=== PATIENT | male | born 1955 | race Caucasian/White ===

== ENCOUNTER 2018-12-17 20:22 | Inpatient (IN) ==
--- NOTE | 2018-12-17 20:35 | Emergency Department Note ---
Disposition Clinical Impression: CHADD (acute kidney injury) Cellulitis Qualifiers: Site of cellulitis: extremity Site of cellulitis of extremity: lower extremity Laterality: left Qualified Code(s): L03.116 - Cellulitis of left lower limb Chest pain Qualifiers: Chest pain type: unspecified Qualified Code(s): R07.9 - Chest pain, unspecified Disposition: Home, Self-Care Condition: Fair Time of Disposition: 22:31 General Adult HPI - General Chief complaint: ED Extremity Problem,Nontraumatic Stated complaint: Left Leg Pain N/V Time Seen by Provider: 12/17/18 20:34 Source: patient Mode of arrival: ambulatory Limitations: no limitations Nursing Notes Reviewed: Yes Vital Signs Reviewed: Yes - History of Present Illness HPI Narrative: Patient is a 63-year-old male who is presenting with left leg swelling and pain. Patient was seen up rectally 3-4 weeks ago by his primary care provider and placed on 10 days of oral Keflex, when this did not resolve or changes symptoms he was seen up rectally one week ago for similar symptoms and was placed on 5 days Keflex. He states that his symptoms have progressively worsened with increased redness and pain. He states initially there was a small scab in the area which was like a bug bite, he continued to pick this area which seemed ir ritated. He denies any recent fevers or chills. Patient also states that today he has been having right-sided chest pain, he describes as a sharp sharp in nature without exertion changes. He denies any associated shortness of breath. He denies any radiation of symptoms. He also has had some nausea with vomiting, no hemoptysis, hematochezia or hematemesis. He denies any abdominal pain. Pain Scale: 7 - Related Data Home Medications Medication Instructions Recorded Confirmed Atorvastatin [Lipitor] 20 mg PO HS 12/18/18 12/18/18 Cephalexin [Keflex] 500 mg PO TID 12/18/18 12/18/18 Cyclobenzaprine [Flexeril] 10 mg PO DAILY PRN 12/18/18 12/18/18 Gabapentin [Neurontin] 300 mg PO DAILY 12/18/18 12/18/18 Lisinopril [Zestril] 20 mg PO DAILY 12/18/18 12/18/18 Naproxen [Naprosyn] 500 mg PO BID 12/18/18 12/18/18 Sertraline [Zoloft] 100 mg PO DAILY 12/18/18 12/18/18 hydroCHLOROthiazide 25 mg PO DAILY 12/18/18 12/18/18 [Hydrochlorothiazide] Allergies Allergy/AdvReac Type Severity Reaction Status Date / Time No Known Allergies Allergy Verified 12/17/18 20:26 All systems ED: reviewed and negative except as stated. Review of Systems: As Per HPI Constitutional: Denies: fever, chills ENT ED: Denies: congestion Cardiovascular: Denies: chest pain, palpitations, dyspnea on exertion, syncope Respiratory: Denies: cough, dyspnea, wheezes, sputum production Gastrointestinal: Reports: nausea, vomiting. Denies: abdominal pain, hematemesis Genitourinary: Denies: urgency, dysuria Musculoskeletal: Denies: back pain Integumentary: Reports: lesions Neurological: Denies: headache, weakness, confusion Psychiatric: Denies: anxiety Endocrine: Denies: fatigue Past Medical History - Past Medical History Medical history: Reports: hyperlipidemia, hypertension - Social History Smoking Status: Current every day smoker Smokeless Tobacco Status: No Alcohol use: Reports: occasionally Drug use: Reports: none Physical Exam General: Conversant. No apparent distress. Follow commands. Appears stated age. Neck: No JVD. Trachea midline. Neck supple. Eyes: PERRL. No scleral icterus. HENT: Normocephalic and atraumatic. Moist mucus membranes. Cardiovascular: Regular rate and rhythm. Normal S1 and S2. No murmurs appreciated. Normal capillary refill. Extremities well perfused with 2+ distal pulses bilaterally. No edema. Pulmonary: Normal and equal breath sounds bilaterally, anteriorly and posteriorly. No wheezes, rales, or rhonchi. Not in respiratory distress. Speaks in full sentences. Abdomen: Soft, nondistended, without tenderness. No bruits or masses. No guarding or rebound. Neuro: Alert and oriented x3. No slurred speech. No focal deficits noted. Skin: Patient with a 5 similar right-sided 5 cm erythematous well demarcated lesion to the left lower leg, no posterior involvement, no tenderness to palpation of posterior cord, pulses distally are intact, there is no crepitus, bulla formation, abscess or fluctuance noted. This is warm to touch and tenderness to palpation. No bony deformity is noted. Sensation is intact. Strength is intact. Patient able to ambulate. Musculoskeletal: No bony abnormalities visualized. Moves all extremities. Psych: Normal mood. Pleasant. Makes appropriate eye contact. - General Limitations: no limitations General appearance: alert Course Vital Signs Temperature 97.6 F 12/17/18 20:26 Pulse Rate 81 12/17/18 20:26 Respiratory Rate 16 12/17/18 20:26 Blood Pressure 119/77 12/17/18 20:26 O2 Sat by Pulse Oximetry 94 12/17/18 20:26 Temperature 97.6 F 12/17/18 20:26 Pulse Rate 57 12/17/18 22:19 Respiratory Rate 16 12/17/18 22:19 Blood Pressure 83/47 12/17/18 22:19 O2 Sat by Pulse Oximetry 94 12/17/18 22:19 Oxygen Delivery Oxygen Delivery Room Air Procedures - Intubation Mg Given: 100 Medical Decision Making - MDM Narrative Medical decision making narrative: Patient is a 63-year-old male presenting with left leg swelling and pain. Patient was diagnosed practically 3-4 weeks ago with cellulitis by his primary care provider was placed on Keflex 10 days, however continued to have symptoms and was placed on 5 further days, he just finish this regimen yesterday. He st ates that he has noticed increased swelling and redness to the left leg with pain. This is nontraumatic in nature. He is a smoker no history of diabetes. On examination, patient is alert and oriented 3, on repeat evaluation in the room, patient is normotensive afebrile and is not tachycardic. He does have tenderness as well as erythema with clear demarcation to the left lower leg without posterior involvement. Patient also complained of some chest pain today, troponin and EKG were also performed as well as chest x-ray these were all unremarkable. Patient was started on normal saline, x-ray of the left leg was performed which shows no bony involvement. CBC does show a leukocytosis, ESR and CRP are elevated, patient also has elevated serum creatinine, as patient has no known history in our hospital or ER, do not know if this is acute or chronic nature. Patient was started on vancomycin as well as cefepime per concern for cellulitis. At this point in time, patient will be admitted to the hospital for failed outpatient treatment. Blood cultures and lactate have been ordered. Patient agreeable to admission. - Medical Records Medical records reviewed: Yes I reviewed the patient's medical records. - Lab Data Lab results reviewed: Yes I reviewed the patient's lab results. Result diagrams: 12/22/18 04:43 12/22/18 04:43 Lab Results 12/17/18 12/17/18 12/17/18 Range/Units 21:03 21:03 21:03 WBC 19.3 H (4.3-11.1) K/mcL RBC 4.41 (4.19-5.50) M/mcL Hgb 13.6 (12.9-16.9) g/dL Hct 40.9 (37.5-50.1) % MCV 92.7 (83.0-100.0) fL MCH 30.8 (28.0-33.3) pg MCHC 33.3 (31.6-35.5) g/dL RDW 12.4 (11.5-14.5) % Plt Count 304 (140-400) K/mcL MPV 10.4 (9.4-12.4) fL Immature Gran % 0.6 (0-4) % Seg Neutrophils % 85.6 % Lymphocytes % 6.3 % Monocytes % 6.8 % Eosinophils % 0.4 % Basophils % 0.3 % Neutrophils # 16.5 H (1.6-8.9) K/mcL Lymphocytes # 1.2 (0.6-4.6) K/mcL Monocytes # 1.3 (0.0-1.3) K/mcL Eosinophils # 0.1 (0.0-0.6) K/mcL Basophils # 0.1 (0.0-0.2) K/mcL ESR 55 H (0-10) mm/hr Sodium 133 L (136-145) mEq/L Potassium 4.2 (3.5-5.1) mEq/L Chloride 98 (98-107) mEq/L Carbon Dioxide 24 (23-29) mEq/L BUN 25 H (8-23) mg/dL Creatinine 2.34 H (0.70-1.30) mg/dL Est GFR ( Amer) 34 L (> 60) Est GFR (Non-Af Amer) 28 L (> 60) BUN/Creatinine Ratio 11 (6-26) Glucose 126 H (70-105) mg/dL Calculated Osmolality 282 (280-300) Calcium 9.4 (8.6-10.3) mg/dL Troponin I < 0.03 (< 0.04) ng/mL C-Reactive Protein 75 H (Less than 10) mg/L - Radiology Data Radiology results reviewed: Yes I reviewed the patient's radiology results. Chest X-Ray 12/17/18 21:17 IMPRESSION: No acute abnormality detected. D/ / Ric Durand MD / Ric Durand MD Interpreting Provider: Ric Durand MD Tibia/Fibula X-Ray 12/17/18 21:25 IMPRESSION: No acute fracture. D/ / Luis Whitley MD / Luis Whitley MD Interpreting Provider: Luis Whitley MD - EKG Data EKG #1 EKG attestation: Yes I reviewed and interpreted this EKG. EKG results narrative: EKG obtained at 2105 with ventricular rate of 75, regular rhythm, normal axis, no ST segment elevation, depression or T-wave changes. S.B.A.Jasper - S.B.A.RKrystle Situation: Demographics, MOA Background: Presenting Complaint, Relevant PMH, Meds, & Allergies Assessment: Vital Signs, Course and respsone to treatment, Exam Concerns, Patient/Family Expectation, Pertinant Lab Results, Outstanding Labs Recommendation: Barrier(s) to disposition, Recommendation based on pending studies, treatments, or consults S.B.A.RKrystle Report Given to: Dr. Octaviano Parker Repor Time: 23:16 (accepted) Attestation Statement - Attestation Attestation: I have seen this patient with the resident physician, I have personally evaluated this patient. I had reviewed the chart and document dictation by the resident physician and aM in agreement with the information documented by the resident physician. Please see documentation by the resident physician for complete chart including past medical history, family medical history, review of systems, current history and physical and laboratory and imaging studies. I was present for all procedures, provided direct supervision for all procedures, was present for the entirety of all procedures and provided direct guidance during the procedures. Please see documentation by the resident physic newton for any procedures performed. I have reviewed all interpretations of EKGs, and reviewed all EKGs performed on patient's as well. I have also reviewed reports of imaging as provided by radiology.
[2018-12-17] MEDS ORDERED: 0.9 % Sodium Chloride 500 ML IVC ONE (20:55)
[2018-12-17 21:16] LABS: Basophils # 0.1 K/mcL (0.0-0.2); Basophils % 0.3 %; Eosinophils # 0.1 K/mcL (0.0-0.6); Eosinophils % 0.4 %; Hematocrit 40.9 % (37.5-50.1); Hemoglobin 13.6 g/dL (12.9-16.9); Immature Granulocytes % 0.6 % (0-4); Lymphocytes # 1.2 K/mcL (0.6-4.6); Lymphocytes % 6.3 %; Mean Corpuscular HGB Conc 33.3 g/dL (31.6-35.5); Mean Corpuscular Hemoglobin 30.8 pg (28.0-33.3); Mean Corpuscular Volume 92.7 fL (83.0-100.0); Mean Platelet Volume 10.4 fL (9.4-12.4); Monocytes # 1.3 K/mcL (0.0-1.3); Monocytes % 6.8 %; Neutrophils # 16.5 K/mcL (1.6-8.9); Platelet Count 304 K/mcL (140-400); Red Blood Count 4.41 M/mcL (4.19-5.50); Red Cell Distribution Width 12.4 % (11.5-14.5); Segmented Neutrophils % 85.6 %; White Blood Count 19.3 K/mcL (4.3-11.1)
[2018-12-17 21:37] LABS: BUN/Creatinine Ratio 11 (6-26); Blood Urea Nitrogen 25 mg/dL (8-23); C-Reactive Protein 75 mg/L (Less than 10); Calcium 9.4 mg/dL (8.6-10.3); Carbon Dioxide 24 mEq/L (23-29); Chloride 98 mEq/L (98-107); Glucose 126 mg/dL (70-105); Osmolality,Calculated 282 (280-300); Potassium 4.2 mEq/L (3.5-5.1); Sodium 133 mEq/L (136-145); eGFR For African Americans 34 (> 60); eGFR For Non-African Americans 28 (> 60)
[2018-12-17 21:38] LABS: Troponin I < 0.03 ng/mL (< 0.04)
[2018-12-17] MEDS ORDERED: 0.9 % Sodium Chloride 1,000 ML IVC ONE (21:41)
[2018-12-17] MEDS ORDERED: Vancomycin 1,750 MG in 0.9 % Sodium Chloride 250 ML IVPB SCH (22:00)
--- NOTE | 2018-12-17 22:34 | Emergency Department Note ---
Disposition Clinical Impression: Cellulitis Qualifiers: Site of cellulitis: extremity Site of cellulitis of extremity: lower extremity Laterality: left Qualified Code(s): L03.116 - Cellulitis of left lower limb Disposition: Home, Self-Care Condition: Fair Forms: ED Satisfaction Letter Time of Disposition: 22:35 General Adult HPI - General Chief complaint: ED Extremity Problem,Nontraumatic Stated complaint: Left Leg Pain N/V Time Seen by Provider: 12/17/18 20:34 Source: patient Limitations: no limitations - History of Present Illness Pain Scale: 7 - Related Data Previous Rx's Medication Instructions Recorded Cephalexin [Keflex] 500 mg PO QID #40 capsule 12/12/16 Sulfamethoxazole/Trimeth DS 1 each PO BID #20 tablet 12/12/16 [Bactrim DS] Allergies Allergy/AdvReac Type Severity Reaction Status Date / Time No Known Allergies Allergy Verified 12/17/18 20:26 Past Medical History - Past Medical History Medical history: Reports: hyperlipidemia, hypertension - Social History Smoking Status: Current every day smoker Smokeless Tobacco Status: No Alcohol use: Reports: occasionally Drug use: Reports: none Physical Exam - General Limitations: no limitations General appearance: alert Course Vital Signs Temperature 97.6 F 12/17/18 20:26 Pulse Rate 81 12/17/18 20:26 Respiratory Rate 16 12/17/18 20:26 Blood Pressure 119/77 12/17/18 20:26 O2 Sat by Pulse Oximetry 94 12/17/18 20:26 Temperature 97.6 F 12/17/18 20:26 Pulse Rate 57 12/17/18 22:19 Respiratory Rate 16 12/17/18 22:19 Blood Pressure 83/47 12/17/18 22:19 O2 Sat by Pulse Oximetry 94 12/17/18 22:19 Oxygen Delivery Oxygen Delivery Room Air Medical Decision Making - Lab Data Result diagrams: 12/17/18 21:03 12/17/18 21:03 Lab Results 12/17/18 12/17/18 12/17/18 Range/Units 21:03 21:03 21:03 WBC 19.3 H (4.3-11.1) K/mcL RBC 4.41 (4.19-5.50) M/mcL Hgb 13.6 (12.9-16.9) g/dL Hct 40.9 (37.5-50.1) % MCV 92.7 (83.0-100.0) fL MCH 30.8 (28.0-33.3) pg MCHC 33.3 (31.6-35.5) g/dL RDW 12.4 (11.5-14.5) % Plt Count 304 (140-400) K/mcL MPV 10.4 (9.4-12.4) fL Immature Gran % 0.6 (0-4) % Seg Neutrophils % 85.6 % Lymphocytes % 6.3 % Monocytes % 6.8 % Eosinophils % 0.4 % Basophils % 0.3 % Neutrophils # 16.5 H (1.6-8.9) K/mcL Lymphocytes # 1.2 (0.6-4.6) K/mcL Monocytes # 1.3 (0.0-1.3) K/mcL Eosinophils # 0.1 (0.0-0.6) K/mcL Basophils # 0.1 (0.0-0.2) K/mcL ESR 55 H (0-10) mm/hr Sodium 133 L (136-145) mEq/L Potassium 4.2 (3.5-5.1) mEq/L Chloride 98 (98-107) mEq/L Carbon Dioxide 24 (23-29) mEq/L BUN 25 H (8-23) mg/dL Creatinine 2.34 H (0.70-1.30) mg/dL Est GFR ( Amer) 34 L (> 60) Est GFR (Non-Af Amer) 28 L (> 60) BUN/Creatinine Ratio 11 (6-26) Glucose 126 H (70-105) mg/dL Calculated Osmolality 282 (280-300) Calcium 9.4 (8.6-10.3) mg/dL Troponin I < 0.03 (< 0.04) ng/mL C-Reactive Protein 75 H (Less than 10) mg/L Attestation Statement - Attestation Attestation: I have seen this patient with the resident physician, I have personally evaluated this patient. I had reviewed the chart and document dictation by the resident physician and aM in agreement with the information documented by the resident physician. Please see documentation by the resident physician for complete chart including past medical history, family medical history, review of systems, current history and physical and laboratory and imaging studies. I was present for all procedures, provided direct supervision for all procedures, was present for the entirety of all procedures and provided direct guidance during the procedures. Please see documentation by the resident physi candie for any procedures performed. I have reviewed all interpretations of EKGs, and reviewed all EKGs performed on patient's as well. I have also reviewed reports of imaging as provided by radiology. Patient presented emergency department with chief complaint of left leg redness swelling and pain. He has been treated for cellulitis twice by his primary care physician, he had been placed on Keflex for 10 days but it did not go away the extended it for another 5 days and a continued. They then recommended that he come to the ER. He reports today that he started feel sick to his stomach and some nausea and vomiting but denies headache neck pain chest pain shortness of breath cough sputum production abdominal pain diarrhea urinary changes or other concerns. EKG was normal sinus rhythm no evidence of acute ischemic dysrhythmia or hyperkalemia, no evidence of abnormal intervals, no evidence of acute abnormality as interpreted by myself. Chest x-ray as interpreted by radiology showed no acute findings. Left tibial x-ray showed no evidence of subcutaneous gas no other evidence of acute abnormality no bony abnormality. Patient was given IV fluids, he was given IV nausea medication. He was found to have clinically evidence of cellulitis of the left lower extremity, with diffuse erythema of the anterior portion of his left anterior tibial region with some mild pink discoloration circumferentially, but no palpable crepitus no lymphangitis no skin breakdown no necrosis, no blistering. Normal distal pulses, no calf tenderness Homans sign or clinical evidence of DVT. CBC demonstrated leukocytosis. Elevated CRP and sedimentation rate were noted Blood cultures were ordered, patient was given IV antibiotics Renal panel showed creatinine of 2.34 with no comparison. Patient was admitted to the hospital for failure of outpatient antibiotics, with leukocytosis, elevated serum creatinine, and elevated CRP and sedimentation rate. Upon arrival he did not have any evidence of systemic inflammatory response syndrome, his blood pressure trend appeared to be downtrending, however upon my presentation to the room, the blood pressure cuff had been taking with the patient sleeping on his left arm on multiple subsequent checks, when I woke him up whirled him back off his arm and rechecked his blood pressure was 110/60 he had no symptoms of dizziness. He was not tachycardic. Patient admitted for further evaluation and management.
[2018-12-18] MEDS ORDERED: traMADol 50 MG TABLET PO PRN (05:17)
[2018-12-18] MEDS ORDERED: Acetaminophen 325 MG TABLET PO PRN (05:17)
[2018-12-18] MEDS ORDERED: Naloxone 0.4 MG/ML INJ IVP PRN (05:17)
--- NOTE | 2018-12-18 05:27 | Internal Med History&Physical ---
Date of Encounter: 12/18/18 Time of Encounter: 04:56 Internal Medicine - H&P: HPI Chief complaint: Left leg cellulitis Admitted From: Emergency Dept Plans for Post Hospital Care: Home History of present illness: Mr. Cuenca is a 63 year old male Patient presented to the emergency room with left leg redness and pain. He has been treated outpatient for the last few weeks for cellulitis by his PCP. He has been taking Keflex initially completing a 10 day course, but without improvement. He then was put on another 5 days of Keflex. Patient's symptoms did not improve. The redness had never changed, at that point he was recommended to come to the emergency room for further management. Patient states that initially in the area he had a small bug bite. He picked at the wound and eventually it did heal over but the redness increased from this area. He has pain with palpation but no pain with walking. Patient's initial vital signs were within normal limits CBC demonstrated a white count of 19.3. BMP showed a sodium of 133 and a creatinine of 2.34. Glucose was 126. Initial troponin undetectable Lactic acid 0.7 ESR 55 CRP 75 Chest x-ray showed no acute abnormality Tibia-fibula x-ray showed no acute fracture. EKG showed normal sinus rhythm with no ischemic changes In the emergency room patient was given 1.5 L of IV fluids, cultures were drawn and he was started on vancomycin and cefepime for suspected cellulitis. He is admitted to the hospital for further management. Upon my evaluation, patient is resting comfortably in hospital bed in no acute distress. He denies chest pain, abdominal pain, nausea, vomiting, diarrhea and constipation. He has left leg pain with palpation and with movement. He thinks it started out as a spider bite. He is a pack of cigarettes per day smoker. He does have inhalers at home but he does not use them. He has never had skin changes like this before. He denies significant family medical history. He is a full code. Past Med Surg Social Fam HX - Past Medical History Medical history: arthritis, COPD, hyperlipidemia, hypertension - Social History Smoking Status: Current every day smoker Smokeless Tobacco Status: No Alcohol use: occasionally Drug use: none - Family History Mother Living Status: Hx Family Cancer: Yes (liver) Father Living Status: Internal Medicine - H&P: Meds Unable To Obtain [Unable to Obtain] 12/18/18 [History] Allergy/AdvReac Type Severity Reaction Status Date / Time No Known Allergies Allergy Verified 12/17/18 20:26 All Systems PM: A 10-system review of systems was performed and is negative for pertinent findings except as documented above in the HPI. - Constitutional Vitals: Temp Pulse Resp BP Pulse Ox 98.1 F 59 18 83/54 93 12/18/18 03:58 12/18/18 03:58 12/18/18 03:58 12/18/18 03:58 12/18/18 03:58 General appearance: Present: cooperative, A&O X 3, pleasant, no acute distress, answers questions appropriately Exam: - - Head Head exam: Present: normal inspection - Eye Eye exam: Present: EOMI, normal appearance - Respiratory Respiratory exam: Present: wheezes. Absent: decreased breath sounds, CTAB, rales, respiratory distress, rhonchi - Cardiovascular Cardiovascular exam: Present: RRR. Absent: diastolic murmur, systolic murmur - GI/Abdominal GI/Abdominal exam: Present: normal bowel sounds, soft. Absent: tenderness - Extremities Exam Extremities exam: Present: tenderness, warm, radial pulses palpable and symmetrical. Absent: calf tenderness, pedal edema - Neurological Exam Neurological exam: Present: no focal deficits, strengths equal and symetr throughout. Absent: motor sensory deficit, facial droop, speech deficit - Skin Skin exam: Present: dry, erythema, normal color, warm Additional comments: Left pineda erythema, no wound noted. Tender to palpation. Darker area of redness in the center of the erythematous patch. Internal Med - H&P Results - Labs CBC & Chem 7: 12/17/18 21:03 12/17/18 21:03 Labs: Short CBC 12/17/18 Range/Units 21:03 WBC 19.3 H (4.3-11.1) K/mcL Hgb 13.6 (12.9-16.9) g/dL Hct 40.9 (37.5-50.1) % Plt Count 304 (140-400) K/mcL Neutrophils # 16.5 H (1.6-8.9) K/mcL BMP 12/17/18 21:03 Sodium 133 L Potassium 4.2 Chloride 98 Carbon Dioxide 24 BUN 25 H Creatinine 2.34 H Glucose 126 H Calcium 9.4 Cardiac Enzymes 12/17/18 Range/Units 21:03 Troponin I < 0.03 (< 0.04) ng/mL - Impressions ITS Impressions Chest X-Ray 12/17/18 21:17 IMPRESSION: No acute abnormality detected. D/ / Ric Durand MD / Ric Durand MD Interpreting Provider: Ric Durand MD Tibia/Fibula X-Ray 12/17/18 21:25 IMPRESSION: No acute fracture. D/ / Luis Whitley MD / Luis Whitley MD Interpreting Provider: Luis Whitley MD - Assessment and Plan (1) Cellulitis Current Visit: Yes Status: Acute Assessment and plan: Left lower leg redness and tenderness. X-ray did not show evidence of bony involvement. Blood cultures have been drawn and patient was started on vancomycin and cefepime. Has failed outpatient treatment with Keflex. Follow-up blood cultures Continue IV antibiotics Obtain CT of left lower extremity for further differentiation. Monitor for worsening signs of infection Qualifiers: Site of cellulitis: extremity Site of cellulitis of extremity: lower extremity Laterality: left Qualified Code(s): L03.116 - Cellulitis of left lower limb (2) CHADD (acute kidney injury) Current Visit: Yes Status: Acute Assessment and plan: Unknown history of kidney disease. No previous comparison labs in our system. Patient denies history of kidney disease. Patient has received 1.5 L of IV fluids thus far. Continue IV fluid hydration Repeat labs in the morning Consider retroperitoneal ultrasound pending a.m. labs (3) Wheezing Current Visit: Yes Status: Acute Assessment and plan: Patient wheezing on exam. Apparently does have inhalers at home, but he states that he does not use them. Breathing treatments as needed O2 supplementation as needed (4) Nicotine use disorder Current Visit: Yes Status: Acute Assessment and plan: Patient states that he quit smoking yesterday. Declines nicotine patch (5) DVT prophylaxis Current Visit: Yes Status: Acute Assessment and plan: Subcutaneous heparin - Time Spent With Patient Total time spent is greater than 50% in coordination of care (as documented) at patient's floor/unit and/or counseling patient: Greater than 35 minutes
[2018-12-18] MEDS ORDERED: Albuterol 2.5 MG/3 ML NEBULIZER IH PRN (05:29)
[2018-12-18] MEDS: *HR* Heparin 5,000 UNIT/ML VIAL SQ SCH ×2 (06:22→16:49)
[2018-12-18] MEDS: 0.9 % Sodium Chloride 1,000 ML IVC SCH ×2 (06:22→10:40)
[2018-12-18 06:25] LABS: Hematocrit 36.6 % (37.5-50.1); Hemoglobin 12.3 g/dL (12.9-16.9); Mean Corpuscular HGB Conc 33.6 g/dL (31.6-35.5); Mean Corpuscular Hemoglobin 30.9 pg (28.0-33.3); Mean Platelet Volume 10.3 fL (9.4-12.4); Platelet Count 258 K/mcL (140-400); Red Blood Count 3.98 M/mcL (4.19-5.50); Red Cell Distribution Width 12.4 % (11.5-14.5); White Blood Count 13.5 K/mcL (4.3-11.1)
[2018-12-18 06:48] LABS: Calcium 8.6 mg/dL (8.6-10.3); Potassium 3.8 mEq/L (3.5-5.1)
[2018-12-18] MEDS ORDERED: Cefepime HCl 1,000 MG in Water for inj. (sterile) 10 ML IVP SCH (08:00)
[2018-12-18] MEDS ORDERED: 0.9 % Sodium Chloride 500 ML IVC ONE (08:08)
[2018-12-18 08:19] LABS: Estimated Average Glucose 128 mg/dl
--- NOTE | 2018-12-18 09:47 | Electrocardiograph Report ---
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
[2018-12-18] MEDS: Ipratropium/Albuterol Neb 3 ML IH SCH ×3 (09:57→23:10)
--- NOTE | 2018-12-18 10:10 | Event Note ---
<Galen Casanova - Last Filed: 12/18/18 14:15> Date of Encounter: 12/18/18 Time of Encounter: 08:20 When seen today, patient was resting comfortably in his bed. He admitted to SOB and wheezing, but said that he was at his baseline level with his COPD. He admitted to some nausea and vomiting for 2 days prior to arrival to the ED, but currently denies any. He denies any fever. denies any swelling in his lower extremities. Denies any abdominal pain. On exam, he did exhibit some minor end expiratory wheezing on exam. No crackles, rales, or rhonchi. No LE swelling b/l. CV exam was normal. Abdominal exam showed no tenderness. Good pallor to skin. Good capillary refill to extremities. Assessment/Plan: 1. LLE Cellulitis: Faile outpatient treatment with Keflex. Does exhibit mild hypotension with a SBP range of 83-102, however is asymptomatic. No tachycardia. No dizziness. He is afebrile. WBC downtrending from 19.3 down to 13.5. BCx NGTD. XR of Tib/Fib showed no signs of osteomyelitis. F/U CT shows signs of cellulitis, but no signs of bone infection. Low suspicion for osteomyelitis. Plan: - Continue with vancomycin and cefipime day #2. - Continue to monitor blood culture. - If status does not improve, consider f/u MRI of Tib/Fib. 2. CHADD: No baseline level to compare to. Patient attests to no history of renal disease. Likely secondary to hypovolemia due to emesis and infection. Presenting creatinine of 2.34, today at 2.15. Plan: - C/W maintenance IVF. - Avoid nephrotoxins. - Renal dose medications. - Obtain medical records for baseline renal function. 3. COPD: stable. at baseline. Plan: - Oxygen as needed. - Scheduled duonebs. - Albuterol. 4. HTN: has actually been hypotensive (SBP 83-102), but stable. Asymptomatic. Plan: - Continue to monitor. 5. Hypotension: See plan for above. 6. DVT prophylaxis: Plan - SubQ Heparin. <Chava Rivas - Last Filed: 12/18/18 14:41> Date of Encounter: 12/18/18 I examined this patient and my medical decision-making was reviewed with the Resident Physician. I agree with the documented findings, disposition and treatment plan as described except to the extent set forth below. Patient seen and examined at bedside. Patient complains of left lower extremity pain and swelling. On exam his left lower extremity erythema with skin thickening. No areas of drainage appreciated. CT shows evidence of cellulitis Continue IV antibiotics
[2018-12-18] MEDS: Cefepime HCl 2,000 MG in Water for inj. (sterile) 20 ML IVP SCH (20:32)
[2018-12-18] MEDS ORDERED: Cefepime HCl 1,000 MG in 0.9 % Sodium Chloride Mini Bag 100 ML IVPB ONE (21:42)
[2018-12-19] MEDS: *HR* HYDROcodone/Acet 5/325 mg TABLET PO PRN ×2 (00:55→18:46)
[2018-12-19] MEDS: Ipratropium/Albuterol Neb 3 ML IH SCH ×4 (04:15→23:25)
[2018-12-19 04:57] LABS: Hematocrit 32.6 % (37.5-50.1); Mean Corpuscular HGB Conc 32.8 g/dL (31.6-35.5); Mean Corpuscular Hemoglobin 30.6 pg (28.0-33.3); Mean Corpuscular Volume 93.1 fL (83.0-100.0); Mean Platelet Volume 10.7 fL (9.4-12.4); Platelet Count 232 K/mcL (140-400); Red Cell Distribution Width 12.4 % (11.5-14.5); White Blood Count 10.1 K/mcL (4.3-11.1)
[2018-12-19 04:59] LABS: Hemoglobin 10.7 g/dL (12.9-16.9)
[2018-12-19 05:12] LABS: Calcium 8.1 mg/dL (8.6-10.3)
[2018-12-19] MEDS: *HR* Heparin 5,000 UNIT/ML VIAL SQ SCH ×2 (05:46→18:47)
[2018-12-19] MEDS: Cefepime HCl 2,000 MG in Water for inj. (sterile) 20 ML IVP SCH ×2 (09:11→20:11)
--- NOTE | 2018-12-19 12:24 | Internal Med Progress Note ---
Hospitalist Progress Note - Encounter Date of Encounter: 12/19/18 Time of Encounter: 08:50 - Subjective Interval History: When seen today patient was resting comfortably in his bed. He said the swelling in his left lower extremity continues to improve. He says the pain from his left leg has also improved. He denies any abdominal pain, nausea, or vomiting. He denies any fever. Denies any cough or wheezing. Patient does know that he has not had a bowel movement yet since being admitted. He tells me that she normally has a bowel movement every 2 weeks. He also tells me that he has blood on his stool and with wiping during his bowel movements. Also admits to pain with defecation that is relieved afterwards following his bowel movement. He does admit to having a history of hemorrhoids. He says he has had this for many years. He does admit to having a colonoscopy done however he recollect when this was. He tells me that they were able to find some polyps but that is the extent to what he can tell me. - Exam Vitals: Temp Pulse Resp BP Pulse Ox 98.4 F 66 18 104/61 95 12/19/18 08:10 12/19/18 08:10 12/19/18 09:53 12/19/18 08:10 12/19/18 09:53 Exam: GENERAL APPEARANCE: Obese, alert and cooperative, and appears to be in no acute distress. HEAD: normocephalic. EYES: vision is grossly intact. EARS: hearing grossly intact. NOSE: No nasal discharge. CARDIAC: Normal S1 and S2. No S3, S4 or murmurs. Rhythm is regular. There is no peripheral edema, cyanosis or pallor. Extremities are warm and well perfused. Capillary refill is less than 2 seconds. No carotid bruits. LUNGS: Clear to auscultation and percussion without rales, rhonchi, wheezing or diminished breath sounds. ABDOMEN: Positive bowel sounds. Soft, mildly distended, nontender. No guarding or rebound. No masses. MUSKULOSKELETAL: Adequately aligned spine. ROM intact spine and extremities. No joint erythema or tenderness. Normal muscular development. BACK: Examination of the spine reveals normal gait and posture, no spinal deformity, symmetry of spinal muscles, without tenderness, decreased range of motion or muscular spasm. EXTREMITIES: No significant deformity or joint abnormality. No edema. Peripheral pulses intact. No varicosities. LOWER EXTREMITY: Examination of both feet reveals all toes to be normal in size and symmetry, normal range of motion, normal sensation with distal capillary filling of less than 2 seconds without tenderness, discoloration, nodules, weakness or deformity; LLE near the ankle reveals faint erythema and mild edema that has improved from yesterday. Mild tenderness to palpation of the LLE. SKIN: Mild erythema of LLE. PSYCHIATRIC: The mental examination revealed the patient was oriented to person, place, and time. - Assessment and Plan (1) Cellulitis of left lower extremity Current Visit: Yes Status: Acute Assessment and Plan: Failed outpatient treatment with Keflex. Does exhibit mild hypotension with a SBP range of 83-102, however is asymptomatic. No tachycardia. No dizziness. He is afebrile. WBC downtrending: at 10.1 today and WNL. BCx NGTD. XR of Tib/Fib showed no signs of osteomyelitis. F/U CT shows signs of cellulitis, but no signs of bone infection. Low suspicion for osteomyelitis. On exam today, his swelling and erythema has improved from the day prior. Plan: - Continue with vancomycin and cefipime day #3. Plan to switch to PO antibiotics if continues to improve. - Continue to monitor blood culture. - If status does not improve, consider f/u MRI of Tib/Fib. (2) CHADD (acute kidney injury) Current Visit: Yes Status: Acute Assessment and Plan: No baseline level to compare to. Patient attests to no history of renal disease. Likely secondary to hypovolemia due to emesis and infection. Presenting creatinine of 2.34, today at 1.65. Improving. Plan: - C/W maintenance IVF. - Avoid nephrotoxins. - Renal dose medications. - Obtain medical records for baseline renal function. (3) COPD (chronic obstructive pulmonary disease) Current Visit: Yes Status: Acute Assessment and Plan: At baseline. Plan: - Oxygen as needed. - Scheduled duonebs. - Albuterol. (4) HTN (hypertension) Current Visit: Yes Status: Acute Assessment and Plan: has actually been hypotensive (SBP 95-104), but stable. Asymptomatic. Plan: - Continue to monitor. (5) Hypotension Current Visit: Yes Status: Acute Assessment and Plan: See plan above. (6) Constipation Current Visit: Yes Status: Acute Assessment and Plan: Patient states he has BM every 2 weeks and this has been a chronic issues. Admits to hard stools and hemorrhoids. Has had colonoscopy but cannot recollect exact results and when. Plan: - Miralax as needed. - Since this is a chronic issue, he will need to f/u with his PCP. Will need a good bowel regimen and dietary modifications. DVT Prophylaxis: SubQ Heparin. - Time Spent with Patient Total time spent is greater than 50% in coordination of care (as documented) at patient's floor/unit and/or counseling patient: Internal Medicine: Result - Labs CBC & Chem 7: 12/19/18 04:08 12/19/18 04:08 Labs: Short CBC 12/19/18 Range/Units 04:08 WBC 10.1 (4.3-11.1) K/mcL Hgb 10.7 L D (12.9-16.9) g/dL Hct 32.6 L (37.5-50.1) % Plt Count 232 (140-400) K/mcL BMP 12/19/18 04:08 Sodium 139 Potassium 4.0 Chloride 107 Carbon Dioxide 25 BUN 26 H Creatinine 1.65 H Glucose 107 H Calcium 8.1 L - Impressions Impressions Lower Extremity CT 12/18/18 05:33 IMPRESSION: Mild multifocal subcutaneous edema throughout the leg, consider cellulitis. No focal fluid collection or soft tissue gas. D/ / 12/18/2018 11:21:04 Luigi Azevedo MD / winnie Interpreting Provider: Luigi Azevedo MD Consult Discharge Plan - Plan Referrals: Chava Bhatia MD [Primary Care Provider] -
[2018-12-20] MEDS: Ipratropium/Albuterol Neb 3 ML IH SCH ×2 (04:03→11:08)
[2018-12-20] MEDS: *HR* HYDROcodone/Acet 5/325 mg TABLET PO PRN ×2 (05:24→18:01)
[2018-12-20] MEDS: *HR* Heparin 5,000 UNIT/ML VIAL SQ SCH ×2 (05:24→18:01)
[2018-12-20 06:53] LABS: Hematocrit 33.6 % (37.5-50.1); Hemoglobin 10.9 g/dL (12.9-16.9); Mean Corpuscular HGB Conc 32.4 g/dL (31.6-35.5); Mean Corpuscular Hemoglobin 30.8 pg (28.0-33.3); Mean Corpuscular Volume 94.9 fL (83.0-100.0); Mean Platelet Volume 10.4 fL (9.4-12.4); Platelet Count 223 K/mcL (140-400); Red Blood Count 3.54 M/mcL (4.19-5.50); Red Cell Distribution Width 12.3 % (11.5-14.5); White Blood Count 10.1 K/mcL (4.3-11.1)
[2018-12-20 07:10] LABS: BUN/Creatinine Ratio 15 (6-26); Blood Urea Nitrogen 19 mg/dL (8-23); Calcium 8.6 mg/dL (8.6-10.3); Carbon Dioxide 25 mEq/L (23-29); Chloride 106 mEq/L (98-107); Glucose 114 mg/dL (70-105); Osmolality,Calculated 291 (280-300); Potassium 4.3 mEq/L (3.5-5.1); Sodium 139 mEq/L (136-145); eGFR For African Americans > 60 (> 60); eGFR For Non-African Americans 58 (> 60)
[2018-12-20] MEDS: Cefepime HCl 2,000 MG in Water for inj. (sterile) 20 ML IVP SCH (08:27)
--- NOTE | 2018-12-20 13:11 | Internal Med Progress Note ---
Hospitalist Progress Note - Encounter Date of Encounter: 12/20/18 Time of Encounter: 09:10 - Subjective Interval History: When seen today, patient says the swelling in his LLE continues to improve, however the still admits to some pain with palpation there. He denies any fever. Denies any abdominal pain, nausea, or vomiting. He did note that he has devel oped a diffuse rash in his LE b/l as well as across his stomach. Denies any pruritis or pain with the rash. Denies any SOB or throat swelling. - Exam Vitals: Temp Pulse Resp BP Pulse Ox 98.3 F 71 14 101/62 93 12/20/18 10:29 12/20/18 10:29 12/20/18 10:29 12/20/18 10:29 12/20/18 10:29 Exam: GENERAL APPEARANCE: Obese, alert and cooperative, and appears to be in no acute distress. HEAD: normocephalic. EYES: vision is grossly intact. EARS: hearing grossly intact. NOSE: No nasal discharge. CARDIAC: Normal S1 and S2. No S3, S4 or murmurs. Rhythm is regular. There is no peripheral edema, cyanosis or pallor. Extremities are warm and well perfused. Capillary refill is less than 2 seconds. No carotid bruits. LUNGS: Clear to auscultation and percussion without rales, rhonchi, wheezing or diminished breath sounds. ABDOMEN: Positive bowel sounds. Soft, mildly distended, nontender. No guarding or rebound. No masses. MUSKULOSKELETAL: Adequately aligned spine. ROM intact spine and extremities. No joint erythema or tenderness. Normal muscular development. BACK: Examination of the spine reveals normal gait and posture, no spinal deformity, symmetry of spinal muscles, without tenderness, decreased range of motion or muscular spasm. EXTREMITIES: No significant deformity or joint abnormality. No edema. Peripheral pulses intact. No varicosities. LOWER EXTREMITY: Examination of both feet reveals all toes to be normal in size and symmetry, normal range of motion, normal sensation with distal capillary filling of less than 2 seconds without tenderness, discoloration, nodules, weakness or deformity; LLE near the ankle reveals faint erythema and mild edema that has improved from yesterday. Mild tenderness to palpation of the LLE. SKIN: Mild erythema of LLE. Multiple diffuse maculopapular rashes over the LE b/l as well as across the abdomen and chest. PSYCHIATRIC: The mental examination revealed the patient was oriented to person, place, and time. - Assessment and Plan (1) Cellulitis of left lower extremity Current Visit: Yes Status: Acute Assessment and Plan: Failed outpatient treatment with Keflex. Does exhibit mild hypotension with a SBP range of 83-102, however is asymptomatic. No tachycardia. No dizziness. He is afebrile. WBC downtrending: at 10.1 today and WNL. BCx NGTD. XR of Tib/Fib showed no signs of osteomyelitis. F/U CT shows signs of cellulitis, but no signs of bone infection. Low suspicion for osteomyelitis. On exam today, his swelling and erythema has improved from the day prior. He has, however, developed a diffuse maculopapular rash across his legs, abdomen, and chest likely due to an allergic reaction to the antibiotics. Plan: - Stop IV vanc and cefipime. Switch to oral doxycycline. - Continue to monitor blood culture. - If status does not improve, consider f/u MRI of Tib/Fib. (2) CHADD (acute kidney injury) Current Visit: Yes Status: Acute Assessment and Plan: No baseline level to compare to. Patient attests to no history of renal disease. Likely secondary to hypovolemia due to emesis and infection. Presenting creatinine of 2.34, today at 1.25. Continues to improve. Plan: - C/W maintenance IVF. - Avoid nephrotoxins. - Renal dose medications. - Obtain medical records for baseline renal function. (3) Allergic rash present on examination Current Visit: Yes Status: Acute Assessment and Plan: Diffuse maculopapular rashes across the LE b/l, the abdomen, and the chest. No puritis or pain associated. Denies any throat swelling or SOB. Likely secondary to IV antibiotics. Plan: - Switch to oral doxycycline. - Continue to monitor. (4) COPD (chronic obstructive pulmonary disease) Current Visit: Yes Status: Acute Assessment and Plan: At baseline. Plan: - Oxygen as needed. - Scheduled duonebs. - Albuterol. (5) HTN (hypertension) Current Visit: Yes Status: Acute Assessment and Plan: Has actually been hypotensive, however more improved today (SBP of 91-110). Asymptomatic. Plan: - Continue to monitor. (6) Hypotension Current Visit: Yes Status: Acute Assessment and Plan: See plan above. (7) Constipation Current Visit: Yes Status: Acute Assessment and Plan: Patient states he has BM every 2 weeks and this has been a chronic issues. Ad mits to hard stools and hemorrhoids. Has had colonoscopy but cannot recollect exact results and when. Plan: - Miralax as needed. - Since this is a chronic issue, he will need to f/u with his PCP. Will need a good bowel regimen and dietary modifications. DVT Prophylaxis: SubQ Heparin. - Time Spent with Patient Total time spent is greater than 50% in coordination of care (as documented) at patient's floor/unit and/or counseling patient: Internal Medicine: Result - Labs CBC & Chem 7: 12/20/18 06:23 12/20/18 06:23 Labs: Short CBC 12/20/18 Range/Units 06:23 WBC 10.1 (4.3-11.1) K/mcL Hgb 10.9 L (12.9-16.9) g/dL Hct 33.6 L (37.5-50.1) % Plt Count 223 (140-400) K/mcL BMP 12/20/18 06:23 Sodium 139 Potassium 4.3 Chloride 106 Carbon Dioxide 25 BUN 19 Creatinine 1.25 Glucose 114 H Calcium 8.6 Consult Discharge Plan - Plan Referrals: Chava Bhatia MD [Primary Care Provider] -
[2018-12-20] MEDS ORDERED: Ipratropium/Albuterol Neb 3 ML IH PRN (13:53)
[2018-12-20] MEDS ORDERED: Doxycycline 100 MG CAPSULE PO SCH (21:00)
[2018-12-20] MEDS ORDERED: Aminoglycoside Consult 1 EACH MC ONE (23:26)
[2018-12-21] MEDS ORDERED: DiphenhydraMINE CREAM 28.4 GM TUBE TP PRN (00:36)
[2018-12-21] MEDS ORDERED: Ondansetron 4 MG/2 ML VIAL IVP PRN (00:37)
[2018-12-21 05:18] LABS: BUN/Creatinine Ratio 13 (6-26); Blood Urea Nitrogen 16 mg/dL (8-23); Calcium 8.9 mg/dL (8.6-10.3); Carbon Dioxide 26 mEq/L (23-29); Chloride 106 mEq/L (98-107); Glucose 100 mg/dL (70-105); Osmolality,Calculated 289 (280-300); Potassium 4.5 mEq/L (3.5-5.1); Sodium 139 mEq/L (136-145); eGFR For African Americans > 60 (> 60); eGFR For Non-African Americans > 60 (> 60)
[2018-12-21] MEDS: *HR* Heparin 5,000 UNIT/ML VIAL SQ SCH ×2 (05:32→18:00)
[2018-12-21 06:13] LABS: Basophils % 0.3 %; Eosinophils # 0.3 K/mcL (0.0-0.6); Eosinophils % 1.9 %; Hematocrit 36.3 % (37.5-50.1); Immature Granulocytes % 0.4 % (0-4); Lymphocytes # 1.6 K/mcL (0.6-4.6); Lymphocytes % 11.8 %; Mean Corpuscular HGB Conc 33.1 g/dL (31.6-35.5); Mean Corpuscular Hemoglobin 31.2 pg (28.0-33.3); Mean Corpuscular Volume 94.3 fL (83.0-100.0); Mean Platelet Volume 10.9 fL (9.4-12.4); Monocytes # 0.8 K/mcL (0.0-1.3); Neutrophils # 10.5 K/mcL (1.6-8.9); Platelet Count 253 K/mcL (140-400); Red Blood Count 3.85 M/mcL (4.19-5.50); Red Cell Distribution Width 12.2 % (11.5-14.5); Segmented Neutrophils % 79.6 %; White Blood Count 13.2 K/mcL (4.3-11.1)
[2018-12-21] MEDS ORDERED: methylPREDNISolone 125 MG/2 ML VIAL IVP ONE (09:10)
--- NOTE | 2018-12-21 09:22 | Internal Med Progress Note ---
Hospitalist Progress Note - Encounter Date of Encounter: 12/21/18 Time of Encounter: 09:10 - Subjective Interval History: Mr Cuenca is currently in observation for cellulitis of LLE. He has developed urticarial rash. He remains moderate to high risk due to potential for worsening clinical status. Mr Cuenca has developed a rash. It is urticarial but says it doesn't itch. No fever or chills. Area on L leg still painful. No CP or SOB. No GI issues. Seems to be having more pain around leg area. - Exam Vitals: Temp Pulse Resp BP Pulse Ox 98.5 F 59 16 100/65 93 12/21/18 06:54 12/21/18 06:54 12/21/18 06:54 12/21/18 06:54 12/21/18 06:54 Exam: General: Alert and oriented. Comfortable at this time. Skin: Normal color, Urticarial lesions noted on arms, legs and trunk. H: Normocephalic. EENT: EOMI, Mucus membranes moist. Cardiovascular: Normal S1 & S2, no murmurs Pulse regular. Not tachycardic. Lungs: Normal breath sounds, no wheezes or crackles. Abdomen: Soft, non-tender, Normal bowel sounds. Extremities: L leg with no open area. Tender induration around closed wound. Pulses palpable. Neurological: Normal cognition and motor skills. Pulses: radial pulses normal +2. Rest of the physical exam is non contributory - Assessment and Plan (1) Cellulitis Current Visit: Yes Status: Acute Assessment and Plan: Continues to have issue with pain and mild erythema of anterior tibial area. No open lesion. Febrile last night - will get blood cultures now. Abx changed to Clindamycin. Wound care eval - ? anything else needed done. (2) CHADD (acute kidney injury) Current Visit: Yes Status: Resolved Assessment and Plan: Resolved. (3) COPD (chronic obstructive pulmonary disease) Current Visit: Yes Status: Chronic Assessment and Plan: Continue management with PRN aerosols. (4) Urticaria, acute Current Visit: Yes Status: Acute Assessment and Plan: Has developed acute urticaria. Possible reaction to prior abx. Now changed to Clindamycin. (5) Constipation Current Visit: Yes Status: Chronic Assessment and Plan: Pt states he has a bowel movement every 2 weeks. Meds added. (6) Tobacco abuse Current Visit: Yes Status: Chronic Assessment and Plan: Cessation counselling. DVT Prophylaxis: Subqu heparin - Time Spent with Patient Total time spent is greater than 50% in coordination of care (as documented) at patient's floor/unit and/or counseling patient: Internal Medicine: Result - Labs CBC & Chem 7: 12/21/18 04:02 12/21/18 04:02 Labs: Short CBC 12/21/18 Range/Units 04:02 WBC 13.2 H (4.3-11.1) K/mcL Hgb 12.0 L (12.9-16.9) g/dL Hct 36.3 L (37.5-50.1) % Plt Count 253 (140-400) K/mcL Neutrophils # 10.5 H (1.6-8.9) K/mcL BMP 12/21/18 04:02 Sodium 139 Potassium 4.5 Chloride 106 Carbon Dioxide 26 BUN 16 Creatinine 1.19 Glucose 100 Calcium 8.9 Consult Discharge Plan - Plan Referrals: Chava Bhatia MD [Primary Care Provider] - (1) Cellulitis Qualifiers: Site of cellulitis: extremity Site of cellulitis of extremity: lower extremity Laterality: left Qualified Code(s): L03.116 - Cellulitis of left lower limb (3) COPD (chronic obstructive pulmonary disease) Qualifiers: COPD type: emphysema Emphysema type: panlobular Qualified Code(s): J43.1 - Panlobular emphysema (5) Constipation Qualifiers: Constipation type: chronic idiopathic constipation Qualified Code(s): K59.04 - Chronic idiopathic constipation
[2018-12-21] MEDS ORDERED: Doxycycline 100 MG in 0.9 % Sodium Chloride Mini Bag 100 ML IVPB SCH (18:00)
[2018-12-21] MEDS: Clindamycin 300 MG in D5% in Water 50 ML IVPB SCH ×2 (18:01→23:47)
[2018-12-22] MEDS: *HR* Heparin 5,000 UNIT/ML VIAL SQ SCH (05:40)
[2018-12-22 05:53] LABS: Hematocrit 35.1 % (37.5-50.1); Hemoglobin 11.9 g/dL (12.9-16.9); Mean Corpuscular HGB Conc 33.9 g/dL (31.6-35.5); Mean Corpuscular Hemoglobin 31.5 pg (28.0-33.3); Mean Corpuscular Volume 92.9 fL (83.0-100.0); Mean Platelet Volume 10.6 fL (9.4-12.4); Platelet Count 287 K/mcL (140-400); Red Blood Count 3.78 M/mcL (4.19-5.50); Red Cell Distribution Width 11.8 % (11.5-14.5); White Blood Count 18.2 K/mcL (4.3-11.1)
[2018-12-22 06:14] LABS: Alanine Aminotransferase 24 Units/L (7-52); Albumin 3.6 g/dL (3.5-5.7); Albumin/Globulin Ratio 1.2 (1.1-2.2); Alkaline Phosphatase 105 Units/L (34-104); Aspartate Amino Transferase 30 Units/L (13-39); BUN/Creatinine Ratio 22 (6-26); Bilirubin,Total 0.4 mg/dL (0.3-1.0); Blood Urea Nitrogen 27 mg/dL (8-23); Calcium 9.1 mg/dL (8.6-10.3); Carbon Dioxide 24 mEq/L (23-29); Chloride 101 mEq/L (98-107); Globulin 2.9 g/dL (2.4-3.5); Glucose 124 mg/dL (70-105); Osmolality,Calculated 293 (280-300); Potassium 4.2 mEq/L (3.5-5.1); Sodium 138 mEq/L (136-145); Total Protein 6.5 g/dL (6.4-8.9); eGFR For African Americans > 60 (> 60); eGFR For Non-African Americans 59 (> 60)
[2018-12-22] MEDS ORDERED: hydroCHLOROthiazide 25 MG TABLET PO SCH (09:00)
[2018-12-22] MEDS ORDERED: Gabapentin 300 MG CAPSULE PO SCH (09:00)
[2018-12-22] MEDS ORDERED: Lisinopril 20 MG TABLET PO SCH (09:00)
[2018-12-22] MEDS: Clindamycin 300 MG in D5% in Water 50 ML IVPB SCH (09:46)
[2018-12-22 10:50] VITALS: BP 106/64
--- NOTE | 2018-12-22 14:39 | Discharge Summary ---
<Guanako Felipe - Last Filed: 12/22/18 14:47> Orders not resulted at time of discharge: Pending orders 12/17/18 22:56 Culture,Blood [BC] Stat 12/21/18 15:48 Culture,Blood [BC] Routine Date of Encounter: 12/22/18 - Discharge Diagnosis (1) Cellulitis Status: Acute Qualifiers: Site of cellulitis: extremity Site of cellulitis of extremity: lower extremity Laterality: left Qualified Code(s): L03.116 - Cellulitis of left lower limb (2) CHADD (acute kidney injury) Status: Resolved (3) COPD (chronic obstructive pulmonary disease) Status: Chronic Qualifiers: COPD type: emphysema Emphysema type: panlobular Qualified Code(s): J43.1 - Panlobular emphysema (4) Urticaria, acute Status: Acute (5) Constipation Status: Chronic Qualifiers: Constipation type: chronic idiopathic constipation Qualified Code(s): K59.04 - Chronic idiopathic constipation (6) Tobacco abuse Status: Chronic Hospital course: Mr. Cuenca is a 63 year old male - Time Spent with Patient Total time spent providing and/or coordinating discharge services: - Discharge Medications Prescriptions: New Clindamycin HCl 300 mg PO Q8H #16 capsule Polyethylene Glycol 3350 [MiraLAX] 17 gm PO DAILY PRN powd.pack PRN Reason: Constipation Continued Sertraline [Zoloft] 100 mg PO DAILY Lisinopril [Zestril] 20 mg PO DAILY hydroCHLOROthiazide [Hydrochlorothiazide] 25 mg PO DAILY Cyclobenzaprine [Flexeril] 10 mg PO DAILY PRN PRN Reason: Muscle Spasm Atorvastatin [Lipitor] 20 mg PO HS Gabapentin [Neurontin] 300 mg PO DAILY Naproxen [Naprosyn] 500 mg PO BID Discontinued Cephalexin [Keflex] 500 mg PO TID Home Medications: Atorvastatin [Lipitor] 20 mg PO HS 12/18/18 [History] Cyclobenzaprine [Flexeril] 10 mg PO DAILY PRN 12/18/18 [History] Gabapentin [Neurontin] 300 mg PO DAILY 12/18/18 [History] Lisinopril [Zestril] 20 mg PO DAILY 12/18/18 [History] Naproxen [Naprosyn] 500 mg PO BID 12/18/18 [History] Sertraline [Zoloft] 100 mg PO DAILY 12/18/18 [History] hydroCHLOROthiazide [Hydrochlorothiazide] 25 mg PO DAILY 12/18/18 [History] Clindamycin HCl 300 mg PO Q8H #16 capsule 12/22/18 [Rx] Polyethylene Glycol 3350 [MiraLAX] 17 gm PO DAILY PRN powd.pack 12/22/18 [Rx] Allergies/Adverse Reactions: Allergy/AdvReac Type Severity Reaction Status Date / Time No Known Allergies Allergy Verified 12/17/18 20:26 Date of admission: 12/21/18 15:33 Primary care physician: Chava Bhatia MD Consults: 12/18/18 05:29 Consult to Nurse Navigator [CONS] Routine Comment: 12/21/18 09:23 Consult to Wound Care [CONS] Routine Reason for Consult: Pt has area of cellulitis on L leg - prior open area. Still painful. ? need anything else Call Completed: No - Constitutional Vitals: Temp Pulse Resp BP Pulse Ox 98.1 F 63 20 106/64 93 12/22/18 10:47 12/22/18 10:47 12/22/18 10:47 12/22/18 10:47 12/22/18 10:47 General appearance: Present: cooperative, A&O X 3, pleasant, no acute distress, answers questions appropriately - Patient Status Disposition: Home, Self-Care Condition: Good Functional capacity at discharge: independent ambulation Overall status at discharge: patient is progressing back to baseline - Discharge Instructions Instructions: Chronic Hypertension (DC) Follow Up With: Chava Bhatia MD [Primary Care Provider] - 12/28/18 11:30 am Additional Instructions: Continue taking the oral clindamycin. If you develop a fever, if pain in leg worsens or if you notice expanding area of redness please return to the hospital. Follow-up with PCP in one to two weeks. - Diet and Activity Activity: resume usual activities as tolerated Diet: advance to your usual diet - Attending Attestation I examined this patient and my medical decision-making was reviewed with the Resident Physician on 12/22/18. I agree with the documented findings, disposition and treatment plan as described except to the extent set forth below. Mr Cuenca has been admitted for cellulitis of LLE. He developed rash on IV Cefepime. Changed to Doxycycline but developed fever. Switched to Clinidamycin with improvement. No further fever. Leg improved today. Will d/c home on PO Clinda to complete a week. Follow up with PCP. D/C time 38min <CorinaHugh M - Last Filed: 12/22/18 18:01> - NOTES TO OUTPATIENT PROVIDER Notes to Outpatient Provider: Patient was treated for cellulitis of left lower extremitiy. He did develop a rash likely secondary to cefepime. He was switched to oral doxycycline but developed a fever. He did respond very well to clindamycin. He will be sent home with a 7 day course of clindamycin. Orders not resulted at time of discharge: Pending orders 12/17/18 22:56 Culture,Blood [BC] Stat 12/21/18 15:48 Culture,Blood [BC] Routine Date of Encounter: 12/22/18 Time of Encounter: 09:00 - Discharge Diagnosis (1) Cellulitis of left lower extremity Priority: Primary Status: Acute (2) CHADD (acute kidney injury) Priority: Secondary Status: Resolved (3) Allergic rash present on examination Priority: Secondary Status: Acute Hospital course: Mr. Cuenca is a 63 year old male who presented to the emergency room with left leg redness and pain. He was treated outpatient for the last few weeks for cellulitis by his PCP. He has been taking Keflex initially completing a 10 day course, but without improvement. He then was put on another 5 days of Keflex. Patient's symptoms did not improve. The redness had never changed, at that point he was recommended to come to the emergency room for further management. Patient states that initially in the area he had a small bug bite. He has pain with palpation but no pain with walking. Patient's initial vital signs were within normal limits. Labs were significant for a white count of 19.3, sodium of 133 and a creatinine of 2.34. Glucose was 126. Lactic acid 0.7 ESR 55 CRP 75. Chest x-ray showed no acute abnormality. Tibia-fibula x-ray showed no acute fracture. EKG showed normal sinus rhythm with no ischemic changes. In the emergency room patient was given 1.5 L of IV fluids, cultures were drawn and he was started on vancomycin and cefepime for suspected cellulitis. He was admitted to the hospital for further management. The patient's CHADD quickly resolved following rehydration. He did develop a rash, likely secondary to the antibiotic regimen. This was non-pruritic and urticarial in nature. He was given benadryl and steroids for symptomatic treatment. He was switched to doxycycline on day 3 but did develop a fever overnight. He was placed on Clindamycin with good response, swelling decreased, induration resolved and erythema receded. He did have an elevated white count but this was due to his steroid burst. The patient was sent home on to complete a 7 day course of oral clindamycin. He was told to follow up with his PCP in one to two weeks and to return to hospital if condition worsened. Discharge discussed with: patient, nurse - Time Spent with Patient Total time spent providing and/or coordinating discharge services: Time spent: Greater than 30 minutes Date of admission: 12/21/18 15:33 Primary care physician: Chava Bhatia MD Consults: 12/18/18 05:29 Consult to Nurse Navigator [CONS] Routine Comment: 12/21/18 09:23 Consult to Wound Care [CONS] Routine Reason for Consult: Pt has area of cellulitis on L leg - prior open area. Still painful. ? need anything else Call Completed: No Discharging clinician: Guanako Felipe Anticipated date of discharge: 12/22/18 - Constitutional Vitals: Temp Pulse Resp BP Pulse Ox 98.1 F 63 20 106/64 93 12/22/18 10:47 12/22/18 10:47 12/22/18 10:47 12/22/18 10:47 12/22/18 10:47 Exam: General: Alert and oriented. Comfortable at this time. Skin: Normal color, Urticarial lesions noted on arms, legs and trunk. H: Normocephalic. EENT: EOMI, Mucus membranes moist. Cardiovascular: Normal S1 & S2, no murmurs Pulse regular. Not tachycardic. Lungs: Normal sounds, no wheezes or crackles. Abdomen: Soft, nontender, Normal bowel sounds. Extremities: L leg with no open area. Tender induration around closed wound. Pulses palpable. Neurological: Normal cognition and motor skills. Pulses: radial pulses normal +2.
== END 2018-12-22 16:50 | disposition home or self-care (01) | DRG 603 ==
LOC: 3ANU 20:22 → EMEROOARM 20:22 → SUATTDRO 23:25 → 3ANU 12-18 01:04
PROVIDERS: ADMIT Family Medicine; ATTEND Internal Medicine

== ENCOUNTER 2022-03-03 08:46 | Inpatient (IN) ==
[2022-03-03 11:41] LABS: Bilirubin,Urine Negative (Negative); Blood,Urine Negative (Negative); Clarity,Urine Clear (Clear); Color,Urine Light-Orange (Yellow); Glucose,Urine (UA) Normal (Normal); Ketones,Urine Negative (Negative); Leukocyte Esterase,Urine Trace (Negative); Nitrite,Urine Negative (Negative); Protein,Urine Trace mg/dL (Neg-Trace); RBC,Urine 0-3 per hpf (0-3); Squamous Epithelial Cell,Urine Few per hpf (None-Few); Urobilinogen,Urine Normal (Normal); WBC,Urine 0-3 per hpf (0-3)
[2022-03-03 11:45] LABS: Basophils % 0.2 %; Eosinophils # 0.1 K/mcL (0.0-0.6); Eosinophils % 0.7 %; Hematocrit 37.6 % (37.5-50.1); Hemoglobin 13.3 g/dL (12.9-16.9); Immature Granulocytes % 0.4 % (0-4); Lymphocytes # 1.5 K/mcL (0.6-4.6); Lymphocytes % 8.5 %; Mean Corpuscular HGB Conc 35.4 g/dL (31.6-35.5); Mean Corpuscular Hemoglobin 31.1 pg (28.0-33.3); Mean Corpuscular Volume 87.9 fL (83.0-100.0); Monocytes # 1.1 K/mcL (0.0-1.3); Monocytes % 6.4 %; Neutrophils # 14.9 K/mcL (1.6-8.9); Platelet Count 338 K/mcL (140-400); Red Blood Count 4.28 M/mcL (4.19-5.50); Red Cell Distribution Width 11.3 % (11.5-14.5); Segmented Neutrophils % 83.8 %; White Blood Count 17.8 K/mcL (4.3-11.1)
[2022-03-03 12:05] LABS: Alanine Aminotransferase 15 Units/L (7-52); Albumin 4.3 g/dL (3.5-5.7); Albumin/Globulin Ratio 1.5 (1.1-2.2); Alkaline Phosphatase 111 Units/L (34-104); Amylase 27 Units/L (29-103); Aspartate Amino Transferase 20 Units/L (13-39); BUN/Creatinine Ratio 9 (6-26); Bilirubin,Direct 0.2 mg/dL (0.0-0.2); Bilirubin,Indirect 0.7 mg/dL (0.0-1.0); Bilirubin,Total 0.9 mg/dL (0.3-1.0); Blood Urea Nitrogen 14 mg/dL (8-23); Calcium 9.5 mg/dL (8.6-10.3); Carbon Dioxide 26 mEq/L (23-29); Chloride 86 mEq/L (98-107); Globulin 2.9 g/dL (2.4-3.5); Glucose 119 mg/dL (70-105); Lipase 23 Units/L (11-82); Osmolality,Calculated 254 (280-300); Potassium 4.1 mEq/L (3.5-5.1); Sodium 121 mEq/L (136-145); Total Protein 7.2 g/dL (6.4-8.9); Troponin I < 0.03 ng/mL (< 0.04)
[2022-03-03] MEDS ORDERED: Famotidine 20 MG/2 ML VIAL IVP ONE (14:39)
[2022-03-03] MEDS ORDERED: Iopamidol - 370 500 ML MLS IVP ONE (14:39)
[2022-03-03] MEDS ORDERED: 0.9 % Sodium Chloride 500 ML IVC ONE (14:47)
[2022-03-03 16:01] LABS: Sodium, Urine 17.8 mEq/L
[2022-03-03 16:12] LABS: Potassium,Urine 23.8 mEq/L
[2022-03-03] MEDS: 0.9 % Sodium Chloride 1,000 ML IVC SCH ×2 (16:34→21:36)
[2022-03-03] MEDS ORDERED: Ondansetron 4 MG/2 ML VIAL IVP PRN (17:23)
[2022-03-03] MEDS ORDERED: Naloxone 0.4 MG/ML INJ IVP PRN (17:23)
[2022-03-03] MEDS ORDERED: Acetaminophen 325 MG TABLET PO PRN (17:23)
[2022-03-03 19:02] LABS: Calcium 8.6 mg/dL (8.6-10.3); Potassium 3.9 mEq/L (3.5-5.1)
[2022-03-04 03:37] LABS: Hematocrit 31.6 % (37.5-50.1); Mean Corpuscular HGB Conc 35.1 g/dL (31.6-35.5); Mean Corpuscular Volume 88.3 fL (83.0-100.0); Mean Platelet Volume 10.2 fL (9.4-12.4); Platelet Count 259 K/mcL (140-400); Red Blood Count 3.58 M/mcL (4.19-5.50); Red Cell Distribution Width 11.3 % (11.5-14.5); White Blood Count 10.4 K/mcL (4.3-11.1)
[2022-03-04 03:51] LABS: Hemoglobin 11.1 g/dL (12.9-16.9)
[2022-03-04 03:55] LABS: Calcium 8.6 mg/dL (8.6-10.3); Magnesium 1.5 mg/dL (1.6-2.6); Phosphorous 2.8 mg/dL (2.7-4.5); Potassium 4.1 mEq/L (3.5-5.1)
[2022-03-04] MEDS: 0.9 % Sodium Chloride 1,000 ML IVC SCH (08:37)
[2022-03-04] MEDS: polyethylene glycoL 3350 17 GM POWD.PACK PO SCH (13:57)
[2022-03-04] MEDS ORDERED: E-Z-HD (BARIUM SULF) SUSPENSION PO ONE (15:32)
[2022-03-04] MEDS ORDERED: E-Z-PAQUE (BARIUM SULF) SUSP 1 BOTTLE PO ONE (15:32)
[2022-03-04] MEDS ORDERED: Melatonin 3 MG TABLET PO ONE (20:03)
[2022-03-05] MEDS: 0.9 % Sodium Chloride 1,000 ML IVC SCH (00:28)
[2022-03-05 05:53] LABS: Basophils # 0.1 K/mcL (0.0-0.2); Basophils % 0.4 %; Eosinophils # 0.1 K/mcL (0.0-0.6); Eosinophils % 1.2 %; Hemoglobin 10.8 g/dL (12.9-16.9); Immature Granulocytes % 0.3 % (0-4); Lymphocytes # 1.8 K/mcL (0.6-4.6); Lymphocytes % 15.3 %; Mean Corpuscular HGB Conc 33.8 g/dL (31.6-35.5); Mean Corpuscular Hemoglobin 30.3 pg (28.0-33.3); Mean Corpuscular Volume 89.9 fL (83.0-100.0); Mean Platelet Volume 10.2 fL (9.4-12.4); Monocytes # 0.8 K/mcL (0.0-1.3); Monocytes % 6.8 %; Neutrophils # 8.8 K/mcL (1.6-8.9); Platelet Count 269 K/mcL (140-400); Red Blood Count 3.56 M/mcL (4.19-5.50); Red Cell Distribution Width 11.7 % (11.5-14.5); White Blood Count 11.6 K/mcL (4.3-11.1)
[2022-03-05] MEDS ORDERED: *HR* Enoxaparin 40 MG/0.4 ML SYRINGE SQ SCH (06:00)
[2022-03-05 06:02] LABS: Calcium 8.8 mg/dL (8.6-10.3); Potassium 4.4 mEq/L (3.5-5.1)
[2022-03-05] MEDS: polyethylene glycoL 3350 17 GM POWD.PACK PO SCH (08:20)
[2022-03-05 11:02] VITALS: BP 116/78; PULSE 72; TEMP 98.1; O2SAT 95
== END 2022-03-05 13:54 | disposition home or self-care (01) | DRG 391 ==
LOC: 3ANU 08:46 → EMEROOARM 08:46 → SUATTDRO 17:00 → 3ANU 17:54
PROVIDERS: ADMIT Student in an Organized Health Care Education/Training Program; ATTEND Registered Nurse